=== PATIENT | female | born 1985 | race African-American/Black ===

== ENCOUNTER 2017-01-12 13:49 | Emergency (ER) | payer MEDICAID ==
[~2017-01-12] VITALS: Ht 172.7 cm; Wt 72.6 kg
[2017-01-12 13:52] VITALS: BP 130/82
== END 2017-01-12 17:10 | disposition left against medical advice (07) ==
LOC: ER 13:55
DX: R07.9 Chest pain, unspecified (principal); R11.2 Nausea with vomiting, unspecified; Z53.21 Procedure and treatment not carried out due to patient leaving prior to being seen by health care provider
CPT/HCPCS: 93005